=== PATIENT | female | born 1945 | race Caucasian/White ===

== ENCOUNTER 2018-04-21 01:20 | Emergency (ER) | payer MEDICARE, OTHER ==
[~2018-04-21] VITALS: Ht 160 cm; Wt 56.7 kg
[2018-04-21 01:20] VITALS: BP 140/90
[~2018-04-21 01:20] MED LIST: ATI.5 PO
--- NOTE | 2018-04-21 01:45 | NUR ---
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
--- NOTE | 2018-04-21 02:10 | NUR ---
PATIENT BIB ALS TO ER BED 7.
--- NOTE | 2018-04-21 02:20 | NUR ---
PT PRESENTS TO ED NATALIIA WITH C/O ETOH INTOX WITH CONSUMTPTION OF LORAZEPAM. PT REPORTS SHE HAD A FAMILY ARGUMENT AND JUST WANTED TO TAKE SOMETHING TO RELAX HER FOR THE NIGHT. PT IS ALERT TO PERSON, PLACE, BIRTHDAY, AND SITUATION. PT ANSWERS ALL QUESTIONS APPROPRIATLEY. PT DENIES N/V. PT PLACED ON ALL MONITORS AND PENDING MD ALEXANDER.
--- NOTE | 2018-04-21 03:04 | NUR ---
EKG PERFORMED AT BEDSIDE WITH SPOUSE PRESENT. PT COVERED IN GOWN AND BLANKET DURING PROCEDURE.
[2018-04-21 03:11] LABS: BASOPHILS # (AUTO) 0.1 K/uL (0.00-0.22); BASOPHILS % (AUTO) 0.6 % (0.0-2.0); EOSINOPHILS # (AUTO) 0.1 K/uL (0-0.4); EOSINOPHILS % (AUTO) 0.7 % (0.0-4.0); HEMATOCRIT 37.7 % (36-48); HEMOGLOBIN 12.2 g/dL (12.0-16.0); LYMPHOCYTES # (AUTO) 1.4 K/uL (2.5-16.5); LYMPHOCYTES % (AUTO) 11.8 % (20.5-51.1); MEAN CORPUSCULAR HEMOGLOBIN 28 pg (27-31); MEAN CORPUSCULAR HGB CONC 33 g/dL (33-37); MEAN CORPUSCULAR VOLUME 85.6 fL (80-94); MONOCYTES # (AUTO) 0.5 K/uL (0.8-1.0); MONOCYTES % (AUTO) 4.4 % (1.7-9.3); NEUTROPHILS # (AUTO) 9.7 K/uL (1.8-7.7); NEUTROPHILS % (AUTO) 82.5 % (42.2-75.2); PLATELET COUNT (AUTO) 323 K/uL (140-450); RED CELL DISTRIBUTION WIDTH 15.9 % (11.6-13.7); WHITE BLOOD COUNT (AUTO) 11.8 K/uL (4.8-10.8)
[2018-04-21 03:28] LABS: ANION GAP 17.9 (8-16); CARBON DIOXIDE 23.5 mmol/L (21-32); CHLORIDE 107 mmol/L (98-107); CREATININE 0.6 mg/dL (0.6-1.3); GLUCOSE 99 mg/dL (74-106); POTASSIUM 3.4 mmol/L (3.5-5.1); SODIUM SERUM 145 mmol/L (136-145); UREA NITROGEN, BLOOD 10 mg/dL (7-18)
[2018-04-21 03:29] LABS: APPEARANCE,URINE CLEAR (CLEAR); COLOR,URINE YELLOW (YELLOW)
[2018-04-21 03:30] LABS: BILIRUBIN,URINE NEGATIVE (NEGATIVE); BLOOD, URINE NEGATIVE (NEGATIVE); LEUKOCYTE ESTERASE ,URINE NEGATIVE (NEGATIVE); NITRITE, URINE NEGATIVE (NEGATIVE); UGLUCOSE NEGATIVE (NEGATIVE)
[2018-04-21 03:35] LABS: BARBITURATE, URINE POS. ng/ml (NEG <=200); BENZODIAZEPINE, URINE NEG. ng/mL (NEG <=200); CANNABINOID, URINE NEG. ng/mL (NEG <=50); COCAINE, URINE NEG. ng/mL (NEG <=300); OPIATE, URINE NEG. ng/mL (NEG <=2000); PHENCYCLIDINE SCREEN,URINE NEG. ng/mL (NEG <=25)
[2018-04-21 03:38] LABS: TOTAL BILIRUBIN 0.2 mg/dL (0.0-1.0)
[2018-04-21 03:39] LABS: ASPARTATE AMINOTRANSFERASE 21 U/L (15-37)
[2018-04-21 03:40] LABS: ACETAMINOPHEN < 0.5 ug/ml (10-30); ALBUMIN 3.5 g/dL (3.4-5.0); SALICYLATE < 2.8 mg/dL (2.8-20.0)
--- NOTE | 2018-04-21 04:43 | NUR ---
PENDING DISCHARGE ORDERS FROM DR AHN AT THIS TIME.
[2018-04-21 05:06] VITALS: BP 126/59
--- NOTE | 2018-04-21 05:07 | NUR ---
Patient discharged with v/s stable. Written and verbal after care instructions given and explained. Patient verbalized understanding. Ambulatory with steady gait. All questions addressed prior to discharge. Advised to follow up with PMD.
--- NOTE | 2018-04-21 06:25 | NUR ---
[facility] GIVEN PT STATUS UPDATE.
== END 2018-04-21 05:07 | disposition home or self-care (01) ==
LOC: MED 01:20
DX: F10.129 Alcohol abuse with intoxication, unspecified (principal); Z88.5 Allergy status to narcotic agent; Z79.52 Long term (current) use of systemic steroids
CPT/HCPCS: 36415; 80053; 80305; 81003; 85025; 99285; G0480; G0482